=== PATIENT | male | born 1950 ===

== ENCOUNTER → 2018-01-07 | Outpatient (CLI) | payer OTHER | END | disposition home or self-care (01) | LOC: MRI 14:13 | DX: M47.894 Other spondylosis, thoracic region (principal) | CPT/HCPCS: 72146 ==

== ENCOUNTER 2019-06-08 08:14 | Outpatient (CLI) | payer OTHER | END 2019-06-08 08:17 | disposition home or self-care (01) | LOC: RAD 08:14 | DX: M41.86 Other forms of scoliosis, lumbar region (principal) ==

== ENCOUNTER 2019-06-09 10:00 | Outpatient (CLI) | payer OTHER | END 2019-06-09 15:47 | disposition home or self-care (01) | LOC: TOM 10:00 | DX: M41.80 Other forms of scoliosis, site unspecified (principal) ==